=== PATIENT | male | born 1940 | race Caucasian/White ===

== ENCOUNTER 2020-04-19 18:25 | Emergency (ER) | payer MEDICARE, OTHER ==
[~2020-04-19] VITALS: Ht 182.9 cm; Wt 79.8 kg
[2020-04-19 19:30] LABS: BASOPHILS ABSOLUTE AUTO 0.05 K/mm3 (0.00-0.23); BASOPHILS PERCENT AUTO 0 % (0-2); EOSINOPHILS ABSOLUTE AUTO 0.01 K/mm3 (0.00-0.68); EOSINOPHILS PERCENT AUTO 0 % (0-6); Hematocrit 43.3 % (37.0-53.0); Hemoglobin 14.8 g/dL (13.5-17.5); IMMATURE GRAN ABSOLUTE AUTO 0.08 K/mm3 (0.00-0.10); IMMATURE GRAN PERCENT AUTO 1 % (0-1); LYMPHOCYTES ABSOLUTE AUTO 0.88 K/mm3 (0.84-5.20); LYMPHOCYTES PERCENT AUTO 7 % (21-46); MONOCYTES ABSOLUTE AUTO 0.67 K/mm3 (0.16-1.47); MONOCYTES PERCENT AUTO 6 % (4-13); Mean Corpuscular HGB 30.5 pg (26.0-34.0); Mean Corpuscular HGB Conc 34.2 g/dL (31.5-36.5); Mean Corpuscular Volume 89 fL (80-100); Mean Platelet Volume 9.2 fL (9.1-12.4); NEUTROPHILS PERCENT AUTO 86 % (41-73); Platelet Count 167 K/mm3 (150-400); RDW Coefficient Variation 13.7 % (11.7-14.2); RDW Standard Deviation 44.5 fL (35.1-46.3); Red Blood Cell Count 4.85 M/mm3 (4.30-5.90); White Blood Cell Count 12.29 K/mm3 (4.00-11.30)
[2020-04-19 19:59] LABS: Alanine Aminotransfer (ALT/SGP 25 U/L (12-78); Albumin, Blood 4.1 g/dL (3.4-5.0); Albumin/Globulin Ratio 1.1 (0.8-1.8); Alk Phos 122 U/L (50-136); Anion Gap 10 mmol/L (6-16); Aspartate Aminotrans (AST/SGOT 25 U/L (12-37); Bilirubin, Total 0.8 mg/dL (0.1-1.0); Blood Urea Nitrogen 21 mg/dL (8-24); Bun/Creatinine Ratio 19.4 (12.0-20.0); CO2, Blood 25 mmol/L (21-32); Calcium, Blood 8.6 mg/dL (8.5-10.1); Chloride, Blood 99 mmol/L (98-108); Creatinine, Blood 1.08 mg/dL (0.60-1.20); Globulin, Blood 3.8 g/dL (2.2-4.0); Glomerular Filtration Rate >60 (60-); Glucose, Blood 203 mg/dL (70-99); Potassium, Blood 4.3 mmol/L (3.5-5.5); Sodium, Blood 134 mmol/L (136-145); Total Protein, Blood 7.9 g/dL (6.4-8.2); Troponin I <0.015 ng/mL (0.000-0.040)
[2020-04-19] MEDS ORDERED: Prinivil5 MG PO (20:20)
== END 2020-04-19 20:28 | disposition home or self-care (01) ==
LOC: ER 18:25
PROVIDERS: Physician Assistant
DX: I10 Essential (primary) hypertension (principal)
CPT/HCPCS: 36415; 71046; 80053; 84484; 85025; 93005; 93010; 99283-25

== ENCOUNTER 2021-09-18 11:33 | Emergency (ER) | payer MEDICARE, OTHER ==
[~2021-09-18] VITALS: Ht 182.9 cm; Wt 72.6 kg
[~2021-09-18 11:33] MED LIST: AMOCLA875 PO; ATOR20 PO; CIPRODEX OTIC7.5 M1 BOTHEARS; CLOBET30L; Deltasone 10 mg10 MG PO; FINA5 PO; Flonase 0.05% N16 GM; IPRATROPIUM BRO30 ML; LEVSOD75 PO; LOSA50 PO; Nexium40 MG PO; PRED20 PO; Prinivil5 MG PO; SODIUM FLUORID100 M2 DT; TAMS.4ER PO; UREA226.8 GM; XYZAL5 MG PO
[2021-09-18] MEDS ORDERED: Prinivil10 MG PO (12:02)
[2021-09-18] MEDS ORDERED: Norco 5-325 Ta1 EACH PO (14:01)
== END 2021-09-18 14:10 | disposition home or self-care (01) ==
LOC: ER 11:33
DX: I73.9 Peripheral vascular disease, unspecified (principal); I10 Essential (primary) hypertension; Z85.21 Personal history of malignant neoplasm of larynx; Z79.52 Long term (current) use of systemic steroids; Z79.899 Other long term (current) drug therapy
CPT/HCPCS: 93971; 99283-25

== ENCOUNTER 2021-09-21 09:43 | Inpatient (IN) | payer MEDICARE, OTHER ==
[~2021-09-21] VITALS: Ht 182.9 cm; Wt 65.5 kg
[~2021-09-21 09:43] MED LIST changes: +Norco 5-325 Ta1 EACH PO; +Prinivil10 MG PO
[2021-09-21 10:22] LABS: BASOPHILS ABSOLUTE AUTO 0.07 K/mm3 (0.00-0.23); BASOPHILS PERCENT AUTO 1 % (0-2); EOSINOPHILS ABSOLUTE AUTO 0.07 K/mm3 (0.00-0.68); EOSINOPHILS PERCENT AUTO 1 % (0-6); Hematocrit 39.6 % (37.0-53.0); Hemoglobin 12.8 g/dL (13.5-17.5); IMMATURE GRAN ABSOLUTE AUTO 0.07 K/mm3 (0.00-0.10); IMMATURE GRAN PERCENT AUTO 1 % (0-1); LYMPHOCYTES ABSOLUTE AUTO 1.21 K/mm3 (0.84-5.20); LYMPHOCYTES PERCENT AUTO 12 % (21-46); MONOCYTES ABSOLUTE AUTO 0.67 K/mm3 (0.16-1.47); MONOCYTES PERCENT AUTO 6 % (4-13); Mean Corpuscular HGB Conc 32.3 g/dL (31.5-36.5); Mean Corpuscular Volume 90 fL (80-100); Mean Platelet Volume 9.3 fL (9.1-12.4); NEUTROPHILS ABSOLUTE AUTO 8.46 K/mm3 (1.96-9.15); NEUTROPHILS PERCENT AUTO 80 % (41-73); Platelet Count 285 K/mm3 (150-400); RDW Coefficient Variation 14.9 % (11.7-14.2); RDW Standard Deviation 49.2 fL (35.1-46.3); Red Blood Cell Count 4.41 M/mm3 (4.30-5.90); White Blood Cell Count 10.55 K/mm3 (4.00-11.30)
[2021-09-21 11:49] LABS: Influenza A, PCR NEGATIVE (NEGATIVE); Influenza B, PCR NEGATIVE (NEGATIVE); Resp Syncytial Virus, PCR NEGATIVE (NEGATIVE); SARS-Cov-2 (COVID-19) PCR, MMC NEGATIVE (NEGATIVE)
[2021-09-21 13:39] LABS: Alanine Aminotransfer (ALT/SGP 24 U/L (12-78); Albumin, Blood 3.4 g/dL (3.4-5.0); Albumin/Globulin Ratio 0.9 (0.8-1.8); Alk Phos 87 U/L (50-136); Anion Gap 9 mmol/L (6-16); Aspartate Aminotrans (AST/SGOT 17 U/L (12-37); Bilirubin, Total 0.7 mg/dL (0.1-1.0); Blood Urea Nitrogen 11 mg/dL (8-24); Bun/Creatinine Ratio 10.9 (12.0-20.0); CO2, Blood 28 mmol/L (21-32); Calcium, Blood 8.8 mg/dL (8.5-10.1); Chloride, Blood 100 mmol/L (98-108); Creatinine, Blood 1.01 mg/dL (0.60-1.20); Globulin, Blood 3.8 g/dL (2.2-4.0); Glomerular Filtration Rate >60 (60-); Glucose, Blood 110 mg/dL (70-99); Potassium, Blood 4.6 mmol/L (3.5-5.5); Sodium, Blood 137 mmol/L (136-145); Total Protein, Blood 7.2 g/dL (6.4-8.2)
--- NOTE | 2021-09-21 14:54 | NUR ---
ASSUMED CARE: PT ARRIVED FROM ED WITH RIGHT LOWER LIMB ISCHEMIA. LEG IS BLUE/PURPLE TINGED, COOL TO THE TOUCH, NO DOPPLER FOUND WHEN CHECKING FOR PEDAL AND TIBIAL PULSES. PEDAL PULSE TO LEFT LEG FOUND WITH FAINT SOUNDS. PT C/O PAIN TO RIGHT LEG WITH ANY KIND OF STIMULATION. HYPERTENSION NOTED. CALL TO [facility] OR WORK TO MAKE HIM AWARE. ORDER RECIEVED FOR PAIN MEDS. [facility] DID NOT WISH TO ADDRESS HYPERTENSION AT THIS TIME BUT STATES TO MANAGE PAIN AND WHEN INTERVENTION IS COMPLETED WILL GO FROM THERE WITH BP. WILL MEDICATE WHEN ABLE
[2021-09-21 15:21] LABS: Anti-Xa UFH, PHA Monitoring <0.10 IU/mL; Prothrombin Time Results 10.5 Sec (9.7-11.5)
--- NOTE | 2021-09-21 16:00 | NUR ---
PT TAKEN TO [facility] VIA BED BY LINE PILOT STAFF
[2021-09-21 17:32] LABS: U Amphetamine Screen Not Detected; U Barbituate Screen Not Detected; U Benzodiazapine Screen Not Detected; U Buprenorphine Screen Not Detected; U Cannabinoids Screen Not Detected; U Cocaine Screen Not Detected; U Methadone Screen Not Detected; U Methamphetamine Screen Not Detected; U Opiates Screen DETECTED; U Oxycodone Screen DETECTED; U Phencyclidine Screen Not Detected; U Propoxyphene Screen Not Detected
--- NOTE | 2021-09-21 19:14 | NUR ---
PT RETURNED FROM [facility] WITH SHEATH TO LEFT GROIN. HEPARIN GTT AT 10ML/HR PER DR AL INSTRUCTIONS THROUGH SHEATH SIDE ARM. CALL TO PHARMACY FOR TPA GTT. DR AL CAME TO SEE PT AND INSTRUCTS FOR GARDNER CATH TO BE PLACED PRIOR TO TPA GTT STARTING AND IS AWARE THAT THERE IS MINIMAL PULSE TO LEFT FOOT AND NONE TO RIGHT LEG AT THIS TIME. DR AL STATES HE DOES WANT 25ML/HR NS TO RUN BEHIND TPA GTT DUE TO BLOCKAGE BEING MAJORITY OF PT'S LIMB. CENTRAL SUPPLY ASSISTANT AND NIGHT RN AWARE. NIGHT RN ATTEMPTING GARDNER CATH AT THIS TIME.
[2021-09-21 19:27] LABS: Hematocrit 36.9 % (37.0-53.0); Mean Platelet Volume 9.9 fL (9.1-12.4); Platelet Count 262 K/mm3 (150-400)
[2021-09-21 20:41] LABS: Source, Urine Clean Catch
[2021-09-21 21:03] LABS: Bilirubin, Urine Neg (Neg); Blood, Urine 5+ (Neg); Glucose Qualitative, Urine Neg (Neg); Ketones, Urine 1+ (Neg); Leukocyte Esterase, Urine Neg (Neg); Nitrite, Urine Neg (Neg); Protein, Urine 2+ (Neg); Specific Gravity, Urine 1.005 (1.003-1.022); Urobilinogen, Urine NORM (Normal)
[2021-09-21 21:10] LABS: Appearance, Urine Hazy (Clear); Color, Urine Pale Yellow (P-Yellow)
[2021-09-21 21:13] LABS: Bacteria Few /hpf; Red Blood Cells, Urine 25-50 /hpf (0-2); Squamous Epithelial Cells Not Seen /hpf (Few); White Blood Cells, Urine Not Seen /hpf (0-5)
--- NOTE | 2021-09-21 22:26 | NUR ---
SHIFT ASSESSMENT ASSUMED CARE OF PT @ 1900. PT ALERT AND ORIENTED, LAYING SUPINE IN BED. R LEG WITH BLANKET ROLL TUCKED TO REMIND PT TO KEEP LEG STRAIGHT AND STILL. HEPARIN GTT INFUSING @ 10ML/HR, ALTEPLASE @ 1MG/HR, AND NICARDIPINE @ 3MG/HR. GARDNER CATHETER DRAINING EMILY URINE. PTS PAIN SLOWLY BECAME WORSE AT THE BEGINNING OF SHIFT, PT SHIFTING IN BED, ATTEMPTING TO GET UP. PT MEDICATED c PRN PO PAIN MEDS WITH NO RELIEF. HOSPITALIST NOTIFIED, NEW ORDERS FOR IV PAIN MEDS GIVEN. MEDICATED PT c 50MCG'S FENTANYL WITH MINIMAL RELIEF, PT CONTINUED TO THRASH IN BED. DURING THIS TIME PT WENT IN TO A-FIB IN THE 140-150'S. THIS NURSE EDUCATED PT OF THE HIGH BLEEDING RISK AND THE IMPORTANCE OF STAYING SUPINE. PT UNDERSTANDING BUT STATES HE CANNOT TAKE THIS PAIN. HOSPITATLIST NOTIFIED, NEW ORDERS GIVEN FOR PAIN CONTROL AND HR, CURRENT CRAFT MANAGER APPEARS TO HAVE PAIN MANAGEABLE. HR NOW IN THE 80'S. PT CONTINUES TO MOVE IN BED, THIS NURSE CONTINUOUSLY REMINDING PT OF THE NEED TO REMAIN SUPINE. PT NON COMPLIANT WITH REMAINING STILL. WILL CONTINUE TO MONITOR CLOSELY.
[2021-09-22 04:11] LABS: BASOPHILS ABSOLUTE AUTO 0.09 K/mm3 (0.00-0.23); BASOPHILS PERCENT AUTO 1 % (0-2); EOSINOPHILS ABSOLUTE AUTO 0.01 K/mm3 (0.00-0.68); EOSINOPHILS PERCENT AUTO 0 % (0-6); Hematocrit 34.2 % (37.0-53.0); IMMATURE GRAN ABSOLUTE AUTO 0.09 K/mm3 (0.00-0.10); IMMATURE GRAN PERCENT AUTO 1 % (0-1); LYMPHOCYTES ABSOLUTE AUTO 0.59 K/mm3 (0.84-5.20); LYMPHOCYTES PERCENT AUTO 4 % (21-46); MONOCYTES ABSOLUTE AUTO 0.73 K/mm3 (0.16-1.47); MONOCYTES PERCENT AUTO 5 % (4-13); Mean Corpuscular HGB 29.3 pg (26.0-34.0); Mean Corpuscular HGB Conc 32.2 g/dL (31.5-36.5); Mean Corpuscular Volume 91 fL (80-100); Mean Platelet Volume 8.7 fL (9.1-12.4); NEUTROPHILS ABSOLUTE AUTO 13.14 K/mm3 (1.96-9.15); NEUTROPHILS PERCENT AUTO 90 % (41-73); Platelet Count 158 K/mm3 (150-400); RDW Coefficient Variation 15.3 % (11.7-14.2); RDW Standard Deviation 50.3 fL (35.1-46.3); Red Blood Cell Count 3.76 M/mm3 (4.30-5.90); White Blood Cell Count 14.65 K/mm3 (4.00-11.30)
[2021-09-22 04:35] LABS: Alanine Aminotransfer (ALT/SGP 19 U/L (12-78); Albumin, Blood 2.6 g/dL (3.4-5.0); Albumin/Globulin Ratio 0.7 (0.8-1.8); Alk Phos 66 U/L (50-136); Anion Gap 9 mmol/L (6-16); Aspartate Aminotrans (AST/SGOT 16 U/L (12-37); Bilirubin, Total 0.7 mg/dL (0.1-1.0); Blood Urea Nitrogen 11 mg/dL (8-24); Bun/Creatinine Ratio 11.7 (12.0-20.0); CO2, Blood 26 mmol/L (21-32); Calcium, Blood 8.1 mg/dL (8.5-10.1); Chloride, Blood 103 mmol/L (98-108); Creatinine, Blood 0.94 mg/dL (0.60-1.20); Globulin, Blood 3.5 g/dL (2.2-4.0); Glomerular Filtration Rate >60 (60-); Glucose, Blood 134 mg/dL (70-99); Magnesium, Blood 2.4 mg/dL (1.6-2.4); Potassium, Blood 3.6 mmol/L (3.5-5.5); Sodium, Blood 138 mmol/L (136-145); Total Protein, Blood 6.1 g/dL (6.4-8.2)
--- NOTE | 2021-09-22 05:58 | NUR ---
SHIFT SUMMARY PT FINALLY ABLE TO GET SOME REST AFTER BEING MEDICATED c 2MG DILAUDID. TOUR BUS DRIVER/GUIDE CHANGED FROM FENTANYL TO DILAUDID, PT HAS NOT USED DILAUDID TOUR BUS DRIVER/GUIDE. PAIN IS TOLERABLE AT THIS TIME, PT MORE COMPLIANT WITH REMAINING SUPINE. SMALL AMNT OF SS FLUID FROM LF ACCESS SITE, NO SWELLING/ HEMATOMA NOTED. HEPARIN AND TPA CONTINUE AT PRESCRIBED RATE. NICARDIPINE GTT IS OFF, SBP IN THE 130'S. UNABLE TO OBTAIN DOPPLER PULSE ON R EXTREMITY. R FOOT REMAINS COOL TO TOUCH. GARDNER CATH PATENT DRAINING YELLOW URINE. PT NPO SINCE MIDNIGHT. PT SLIGHTLY CONFUSED THIS AM. THIS NURSE SPOKE WITH PTS FRIEND/ CAREGIVER/ UNOFFICIAL ROSALIA VOGT. SIN STATED PT DOES HAVE MOMENTS OF CONFUSION, POSSIBLY OWNERS. PER SIN, PTS DAUGHTER "ROBERT" IS FLYING IN SAT-09/23.
--- NOTE | 2021-09-22 07:30 | NUR ---
DR AL ROUNDING: DR AL IN FOR PT EVAL. RLE PULSES STILL ABSENT, EVEN W/ DOPPLER. HOWEVER SENSATION HAS MUCH IMPROVED OVERNIGHT, PER SERVANDO EVAL. RLE APPEARS MOTTLED, PALE. WARM TO THE TOUCH BUT COOLER THAN THE RLE. PT DEMOSTRATES EXTENSION & FLEXATION, & IS ABLE TO PUSH/PULL W/ MINIMAL PAIN. D/T EXTENT OF THE OCCLUSION, SERVANDO WANTS THE HEPARIN & tPA TO INFUSE FOR THE REST OF THE MORNING & HE WILL TAKE THE PT BACK TO THE HAM PUMPER AROUND LATE MORNING OR EARLY AFTERNOON.
--- NOTE | 2021-09-22 11:37 | NUR ---
UPDATE: PT TO ADMISSIONS ADVISOR. ADMISSIONS ADVISOR TRANSPORT ARRIVES. DILAUDID TRASHMAN PLACED ON SB, tPA & HEPARIN gtt CONTINUES W/ PT TO ADMISSIONS ADVISOR. DAUGHTER, ROBERT UPDATED BY THIS RN.
--- NOTE | 2021-09-22 16:15 | NUR ---
UPDATE: PT RETURNS FROM JUNIOR ACCOUNTANT BOOKKEEPER PT RETURNS FROM JUNIOR ACCOUNTANT BOOKKEEPER. SHEATHE PULLED, ANGIOSEAL IN PLACE. OPSITE DRESSING TO L GROIN ACCESS SITE. SM AMNT OF BLEEDING INTO THE DRESSING, SURROUNDING AREA IS SOFT, NONTENDER, NO OBVIOUS HEMATOMA OR SWELLING. RLE IS PINK W/ LESS MOTTLING. R DP PULSE ABSENT, PT PULSE FAINT W/ DOPPLER. PER SERVANDO, THIS IS AN EXPECTED FINDING. DISTAL CMS INTACT, PAIN W/ PASSIVE STRETCH & PALPATION TO POSTERIOR RLE. GARDNER DRAINING DARK MAROON CONTENTS. ORDERS TO DC GARDNER ONCE PT IS NO LONGER ON MOVEMENT PRECAUTIONS FOR BLEEDING.
--- NOTE | 2021-09-22 17:38 | NUR ---
UPDATE: PT AGITATED & FAMILY UPDATE. DAUGHTER, ROBERT, UPDATED ON PT STATUS AFTER PERFORATOR OPERATOR OIL WELL. PT OBSERVED TO BE INCREASINGLY AGITATED, UNABLE TO LAY FLAT & OFTEN SITTING UP DESPITE REPEATED VERBAL REMINDERS. ADDITIONALLY, SBP NOW 160s-190s. HOSPITALIST, DR Harris, CALLED & UPDATED. SHE WILL PLACE ORDERS FOR PAIN CONTROL & BP CONTROL.
--- NOTE | 2021-09-22 18:32 | NUR ---
SHIFT SUMMARY: PT APPEARS TO BE RESTING WELL AFTER RECEIVING PAIN MEDS, NOW ABLE TO REST SUPINE IN BED. BP IMPROVED AFTER IV HYDRALAZINE. RLE PALE, WARM, W/ SOME MOTTLING. DISTAL CSM INTACT. PT ABLE TO DEMONSTRATE FLEXATION & EXTENSION, & PUSH/PULL W/ R FOOT. HE DOES REPORT SOME POSTERIOR RLE PAIN W/ MOVEMENT. GIACOMO PEDAL PULSES MARKED, R DP PULSE ABSENT, R PT PULSE THREADY W/ DOPPLER. HEPARIN @ 18u/kg/hr. GARDNER OUTPUT CONTINUES TO BE DARK RED, NO NOTABLE CLOTS. WILL CONTINUE TO MONITOR & REPORT OFF TO ONCOMING RN.
--- NOTE | 2021-09-22 21:12 | NUR ---
SHIFT ASSESSMENT BEDSIDE REPORT RECEIVED. DR AL AT BEDSIDE DURING REPORT. PT ALERT AND ORIENTED, LAYING SUPINE IN BED C/O INCREASING PAIN IN THE RIGHT LEG. UNABLE TO OBTAIN DOPPLER PULSES IN R FOOT. SENSATION AND MOVEMENT REMAIN IN TACT TO RLE. COLOR IN RLE IMPROVING IN COMPARISON TO PREVIOUS NIGHT. L FEMORAL ACCESS SITE WITH SMALL HEMATOMA, ASSESSED SWELLING WITH PRIOR NURSE AND DR. AL, NO NEW SWELLING OR BLEEDING NOTED. HEPARIN GTT INFUSING @ 18U/KG/HR. GARDNER CATH PATENT, DRAINING RED URINE, PROVIDER AWARE. WILL CONTINUE TO MONITOR CLOSELY.
[2021-09-23 05:39] LABS: Hematocrit 26.6 % (37.0-53.0); Hemoglobin 8.5 g/dL (13.5-17.5); Mean Platelet Volume 9.3 fL (9.1-12.4); Platelet Count 166 K/mm3 (150-400)
[2021-09-23 06:21] LABS: CHOL/HDL RATIO 2.6; Cholesterol 127 mg/dL (50-200); HDL Cholesterol 49 mg/dL (>39); LDL/HDL RATIO 1.2; Low Density Lipoprotein Chol 58 mg/dL (0-110); Triglycerides 98 mg/dL (30-160); Very Low Density Lipoprot Chol 19 mg/dL (6-32)
--- NOTE | 2021-09-23 06:33 | NUR ---
SHIFT SUMMARY PT REMAINS ALERT AND ORIENTED. EARLY IN THE NIGHT PT PRESENTED WITH MILD CONFUSION THAT SEEMS TO HAVE CLEARED THIS AM. HEPARIN GTT CONTINUES @ 18U/KG/HR. PT IN A-FIB AROUND MIDNIGHT, HOSPITALIST NOTIFIED, AMIODARONE GTT STARTED AND PT CONVERTED TO NSR. NOTIFIED HOSPITALIST OF CHANGE IN RYTHM, ADVISED TO DC AMIODARONE. AROUND 0500 PT WENT BACK INTO A-FIB, HOSPITALIST NOTIFIED. NEW ORDERS FOR ONE TIME IV METOPROLOL AND BID PO METOPROLOL. HR CURRENTLY IN THE 120-130'S, BP STABLE. AM HEMOGLOBIN DROPPED, REPEAT HGB ORDERED FOR 0900. NO SIGNS OF BLEEDING OTHER THAN PREVIOUSLY NOTED REDDENED URINE. LEFT FEMORAL ACCESS SITE UNCHANGED. NO IMPROVEMENTS TO RLE, COLOR REMAINS IMPROVED FROM PREVIOUS DAY BUT PULSES ARE ABSENT. PT CONTINUES TO C/O MODERATE PAIN TO RLE. NO OTHER ACUTE CHANGES, REPORT TO ONCOMING NURSE.
--- NOTE | 2021-09-23 08:00 | NUR ---
UPDATE: CONVERSION WHILE @ REST IN BED, PT CONVERTS FROM AFIB c RVR c RATE IN THE 160s TO A SINUS RHYTHM, HR 80s. BP ALSO IMPROVED. PT CONTINUES TO DENY ANY CP OR SOB & IS ABLE TO DEMONSTRATE HIS NEEDS. WILL UPDATE PROVIDER SHORTLY. STRIP PRINTED & PLACED IN CHART.
[2021-09-23 09:10] LABS: Hematocrit 25.9 % (37.0-53.0); Hemoglobin 8.1 g/dL (13.5-17.5)
--- NOTE | 2021-09-23 09:45 | NUR ---
DR ANDUJAR ROUNDING. DISCUSSED PREVIOUSLY LOW H&H & NEW H&H OF 8.1, 24.9. PT DOES NOT ACCEPT BLOOD PRODUCTS. VERBAL ORDERS GIVEN FOR IRON DEFICIENCY PANEL. DR ANDUJAR ALSO DISCUSSES W/ PT THE IMPORTANCE OF F/U W/ OUTPATIENT & THE POSSIBILITY OF AMPUTATION. PT DOES NOT SEEM RECEPTIVE OR OPEN TO DISCUSSING THE TOPIC. PT ASSISTED UP TO RECLINER W/ STANDBY ASSIST, BLE ELEVATED. PT REPORTS MARKEDLY IMPROVED PAIN RELIEF & IS NOW ABLE TO REST W/ EYES CLOSED. DOOR/CURTAINS LEFT OPEN, CALL LIGHT W/ IN REACH.
[2021-09-23 10:37] LABS: Percent Saturation 27.1 % (20.0-50.0)
[2021-09-23 17:13] LABS: Hematocrit 23.3 % (37.0-53.0); Hemoglobin 7.3 g/dL (13.5-17.5)
--- NOTE | 2021-09-23 20:55 | NUR ---
SHIFT ASSESSMENT PT ALERT AND ORIENTED, SITTING UPRIGHT IN BED WATCHING TV. FOLLOWING COMMANDS. DENIES CP/ SOB. GAME ROOM ATTENDANT CURRENTLY SHOWING NSR. BP STABLE. R FOOT REMAINS PULSELESS, WEAK DORSIFLEXION, COLOR REMAINS IMPROVED IN COMPARISON TO PTS ARRIVAL TO HOSPITAL. HEPARIN GTT CONTINUES @ 18U/KG/HR. GARDNER CATH CONTINUES TO DRAIN LIGHT PINK URINE. WILL CONTINUE TO MONITOR.
[2021-09-23 23:18] LABS: Hematocrit 21.9 % (37.0-53.0); Hemoglobin 6.9 g/dL (13.5-17.5)
[2021-09-24 05:17] LABS: Hematocrit 21.9 % (37.0-53.0); Mean Platelet Volume 9.8 fL (9.1-12.4); Platelet Count 184 K/mm3 (150-400)
--- NOTE | 2021-09-24 05:54 | NUR ---
SHIFT SUMMARY PT ALERT AND ORIENTED, MENTAL STATUS IS MUCH BETTER IN COMPARISON TO PREVIOUS NIGHTS. NO BOUTS OF CONFUSION OR AGITATION NOTED. PT MORE ACTIVE, ABLE TO SIT ON SIDE OF THE BED, SHIFTING R LEG TO FIND POSITION OF MOST COMFORT. NO CHANGES TO RLE, REMAINS PAINFUL. PT HAD APPROXIMATELY A 3 MINUTE RUN OF A-FIB IN THE 160'S, SELF CONVERTED. DENIED CP OR SOB DURING THAT TIME. NO OTHER ACUTE CHANGES.
--- NOTE | 2021-09-24 09:30 | NUR ---
UPDATE: PT AGITATION & CONFUSION. PT FOUND TO BE SITTING UP IN BED W/ VS EQUIP OFF & IV REMOVED. SIGNIFICANT AMNT OF BLOOD NOTED ON THE PT, BLANKETS, & ON THE FLOOR. PT IS AGITATED, CONFUSED. REFUSING TO HAVE SHEETS CHANGED. AFTER MUCH VERBAL REDIRECTION, PT IS ABLE TO BE CLEANED & PUT BACK TO BED, HEPARIN gtt RESTARTED. PT REPORTS HE WAS UNABLE TO HOLD STILL D/T RLE PAIN. SAIGAL @ BEDSIDE FOR AM EVAL. PRN PAIN MEDS ORDERED FOR MORE FREQUENTLY. PT REFUSES ADDITOINAL PAIN MEDS STATING "THAT SHIT DOESN'T WORK" "I'D RATHER ", ATTEMPTED TO CONSOLE PT, PT THREATENED TO "START THROWING SHIT". WILL ATTEMPT AGAIN SHORLTY AFTER SPEAKING W/ FAMILY
--- NOTE | 2021-09-24 09:45 | NUR ---
UPDATE: BED ALARM BED ALARM NOT FUNCTIONAL. BED RAILS RAISED, DOOR & CURTAINS OPEN, STAFF MADE AWARE OF PT FALL RISK & CONFUSION.
--- NOTE | 2021-09-24 10:15 | NUR ---
UPDATE: FAMILY UPDATED PT SPOKE W/ SIN FOR SEVERAL MINS & APPEARS LESS AGITATED BUT CONTINUES TO REFUSE CARE. AFTER SEVERAL MINS OF THIS RN & THE PT SPEAKING W/ SIN, PT WAS ABLE CALM DOWN & ACCEPT MORE PAIN MEDS. SIN, FRIEND & CAREGIVER, STS SHE DOES NOT WANT HIM IN THE HOSPITAL & "I'LL COME GET HIM AMA, HE NEEDS TO BE HOME W/ PAIN CONTROL". FRIEND EDUCATED THOROUGHLY ON THE PLAN TO TRANSITION PT TO PO ANTICOAGULANTS & BE DC'D HOME. FRIEND IS INSISTENT THAT PT BE DC'D HOME W/ PAIN MEDS. WILL DISCUSS W/ HOSPITALIST SHORTLY.
--- NOTE | 2021-09-24 11:41 | NUR ---
UPDATE: RHYTHM CHANGE. OVER THE PAST 2 HRS, PT HAS HAD SHORT INTERMITTENT RUNS OF SVT, ALL SELF-RESOLVING. WHILE @ REST, PT WENT INTO SVT, SUSTAINING IN THE 160s. VAGAL MANEUVERS PERFOMED W/OUT RESOLUTION. PETAR CALLED & UPDATED, DISCUSSED CONCERNS FOR PT'S POOR PAIN CONTROL. ORDERS GIVEN FOR 2mg IV DILAUDID NOW. WILL REEVALUATE SHORTLY.
--- NOTE | 2021-09-24 11:53 | NUR ---
UPDATE: PT HAS CONVERTED INTO A SINUS RHYTHM BEFORE GIVEN PAIN MEDS. HE REPORTS CONTINUED PAIN, MEDICATED W/ 2mg IV DILAUDID & PT IS NOW RESTING SOUNDLY. PT APPEARS LESS AGITATED & NO LONGER USING AGGRESSIVE LANGUAGE.
[2021-09-24 12:43] LABS: Hematocrit 20.4 % (37.0-53.0); Hemoglobin 6.4 g/dL (13.5-17.5)
--- NOTE | 2021-09-24 16:49 | NUR ---
UPDATE: SVT & SAIGAL ROUNDING. WHILE @ REST IN BED, PT AGAIN CONVERTED BACK INTO SVT. PT APPEARS ASYMPTOMATIC, SPEAKING IN FULL SENTENCES, RR EVEN & UNLABORED, DENIES CP. PETAR @ BEDSIDE. MULTIPLE VAGAL MANEUVERS UNSUCCESSFULL. PT GIVEN 5mg IVP LOPRESSOR, RATE DEC FROM 160s-130s. PETAR CONSULTS W/ AL & HEPARIN IS TO CONTINUE @ THE SAME RATE. NO AMIO @ THIS TIME. PLAN FOR METOPROLOL gtt & IF SVT IS UNRESOLVED, PLAN FOR DIGOXIN OR ESMOLOL gtt. WILL F/U W/ PETAR W/ ANY CHANGES. PETAR DISCUSSED PT'S DECREASING H&H & RECEIVING BLOOD, PT CONTINUES TO REFUSE BLOOD PRODUCTS UNDER ANY CONDITION. IN DISCUSSING AMPUTATION OPTIONS, PT STS HE IS UNSURE BUT IF IT "WERE LIFE OR ,JUST DO IT BUT TALK TO MY DAUGHTER" MULTIPLE CALLS PUT OUT TO NEXT OF KIN, ROBERT, NO CALL BACK.
--- NOTE | 2021-09-24 18:06 | NUR ---
UPDATE: HEPARIN UPDATE DISCUSSED HEPARIN ORDER W/ SAIGAL. HEPARIN DOSE RESTARTED @ 18u/kg/hr, PHARMACY TO MANAGE DOSING THEREAFTER W/ LAB DRAWS. D/T PT's DEC BLOOD VALUES, PETAR WANTS PEDIATRIC TUBES USED FOR FURTHER BLOOD DRAWS. LAB CALLED & UPDATED & SIGN POSTED OUTSIDE PT ROOM. WILL PASS ON TO NIGHTSHIFT RN.
--- NOTE | 2021-09-24 18:26 | NUR ---
SHIFT SUMMARY: PT CONTINUES TO DO VERY WELL NOW THAT PAIN IS MANAGED, MUCH MORE APPROPRIATE, CALM, & COOPERATIVE W/ CARE. MONITOR INDICATES AFIB W/ RVR, RATE 120-140s. PLAN FOR DIGOXIN SHORTLY, PER SAIGAL DIGOXIN WILL TAKE SEVERAL HOURS TO TAKE EFFECT, HENCE THE LOPRESSOR gtt @ 0.5mcg/kg/min. BP TRENDING DOWN W/ MAPs 65-75. PT IS NOW ICU STATUS, ORDERS PLACED. SEE PREVIOUS NOTATION FOR PT PROGRESSION.
--- NOTE | 2021-09-24 19:36 | NUR ---
CALL OUT TO BOTH CAREGIVER, SIN, & DAUGHTER, ROBERT, NO RETURN CALL OF YET. LEFT MESSAGES FOR BOTH.
--- NOTE | 2021-09-24 22:51 | NUR ---
SHIFT ASSESSMENT ASSUMED CARE OF PT @ 1900. PT ALERT AND ORIENTED TO PERSON, PLACE, AND YEAR. FOLLOWING COMMANDS BUT QUITE AGITATED. C/O MODERATE PAIN TO RLE, NO PULSES FOUND. HEPARIN GTT INFUSING @ PRESCRIBED RATE. INITIALLY PT IN A-FIB IN THE 130-140'S, TITRATING LOPRESSOR, CURRENTLY @ 2MCG/KG/MIN. PT CONVERTED TO SR @ 2140 c HR IN 50-70'S. DISCUSSED c CHARGE NURSE, LOPRESSOR CURRENTLY ON SB. BP STABLE. WILL CONTINUE TO MONITOR.
--- NOTE | 2021-09-25 01:16 | NUR ---
UPDATE PT CONTINUES TO BE AGITATED, THREATENING STAFF, PULLING AT LINES AND CORDS. TRYING TO LEAVE BUT CANNOT PUT MUCH PRESSURE ON R LEG. PT THINKS HE IS AT HOME AND WE ARE INTRUDERS. SECURITY NOTIFIED. HOSPITALIST CALLED, ORDERS FOR HALDOL. WILL CONTINUE TO MONITOR.
--- NOTE | 2021-09-25 02:13 | NUR ---
UPDATE HALDOL ADMINISTERED, PT REMAINS AGITATED. MULTIPLE NURSES AND SECURITY IN ROOM TO CAUTIOUSLY ASSIST PATIENT TO BED. BL SOFT WRIST RESTRAINTS ON TO PROTECT PATIENT AND IV LINES. WARM BLANKET APPLIED, PILLOWS UNDER ARMS AND HEAD, PT APPEARS TO BE IN POSITION OF COMFORT, ASLEEP WITHIN A FEW MINUTES WITH STIMULUS REDUCTION. WILL REASSESS NEED FOR RESTRAINTS T/O SHIFT.
[2021-09-25 05:01] LABS: Hematocrit 19.1 % (37.0-53.0); Hemoglobin 6.1 g/dL (13.5-17.5); Platelet Count 221 K/mm3 (150-400)
--- NOTE | 2021-09-25 06:04 | NUR ---
SHIFT SUMMARY PT REMAINS AGITATED AND CONFUSED. STIMULATION KEPT TO A MINIMUM BUT ANY MOVEMENT OF PT RESULTS IN PT CURSING AND PULLING AWAY. BL SOFT WRIST RESTRAINTS REMAIN ON. HEPARIN GTT NOW @ 20. NSR ON THE DIE TRIMMER. NO CHANGES TO RLE. VSS. WILL CONTINUE TO MONITOR.
--- NOTE | 2021-09-25 09:30 | NUR ---
ASSUMING PT CARE: PT RESTING IN BED, EYES OPEN. FOLLOWING COMMANDS. ANSWERS SOME QUESTIONS APPROPRIATELY BUT @ TIMES BELIEVES HE IS AT HOME & RESPONDS TO UNSEEN STIMULI. PT REFUSES AM MEDS, REFUSES BED BATH. PT BELIVES THE STAFF IS "KILLING ME WITH YOUR SHIT" WHEN ASKED IF HE WANTS BREAKFAST. HOSPITALIST @ BEDSIDE FOR MORNING ROUNDS. PLAN TO DISCUSS POSSIBLE DC W/ HOSPICE W/ FAMILY TODAY. PT'S CAREGIVER UPDATED VIA TELEPHONE, CALL OUT TO DAUGHTER, NO RETURN CALL.
--- NOTE | 2021-09-25 12:42 | NUR ---
Pt here in ICU with critical lower extremity ischemia and critically low H and H. He refuses any blood products however, due to his yazidi. He, his sister and caregiver have thouroughly discussed hospice, and this is the choice they have settled on. Dr. Harris is aware, as is the bedside RN Mally. Pt has an appt with [facility] tomorrow morning. Pt to discharge home at 10pm, family will provide transportation.
--- NOTE | 2021-09-25 13:00 | NUR ---
UPDATE: HOSPICE DISCUSSED COMFORT CARE & HOSPICE PLAN W/ HOSPITALIST DR Harris, VERBAL ORDERS GIVEN TO DC ALL ORDERS OTHER THAN COMFORT CARE MEDS. PHARMACY UPDATED ON HEPARIN DC. VERIFIED W/ PALLIATIVE CARE THAT PT IS NOW A DNR. DNR BAND PLACED ON L WRIST & OUTSIDE OF DOOR. PT IS RESTING SOUNDLY.
--- NOTE | 2021-09-25 14:01 | NUR ---
UPDATE: PT CONFUSION PT REFUSES PAIN MEDS. CONTINUES TO STATE HIS FRIEND SIN IS "BASICALLY A [employer] B[employer]ER" & "I WONT TAKE ANYTHING UNLESS SHE SIGNS OFF ON IT", PT REMINDED OF COMFORT CARE CONVERSATION W/FAMILY EARLIER & PT BEGINS TO BECOME AGITATED. STATING THE HOSPITAL IS "TRYING TO FORCE BLOOD TRANSFUSIONS ON ME" AND "WHATEVER YOU KEEP GIVING ME IS KILLING ME AND I DON'T WANT IT". AFTER SEVERAL MINS OF VERBAL CONSOLATION & REDIRECTION, PT APPEARS LESS AGITATED & ACCEPTS PAIN MEDS.
--- NOTE | 2021-09-25 14:54 | NUR ---
PT'S SON, RJ, UPDATED W/ THE PERMISSION OF NEXT OF KIN, ROBERT. SON UPDATED ON PT'S EPISODES OF CONFUSION & INTERVENTIONS USED TO KEEP PT SAFE. EXPLAINED PT'S REFUSAL OF IRON INF & EPOGEN, WELL ALL OTHER MEDS. SON EXHIBITS GOOD UNDERSTANDING OF THE PT's PROGRESSION & PLAN FOR DC HOME W/ HOSPICE CARE.
--- NOTE | 2021-09-25 16:00 | NUR ---
PT RESTRAINT ORDER IN PLACE, NO RESTRAINTS ON PT ON ARRIVAL TO ROOM, PT CALM AND COOPERATIVE, RESTRAINTS DISCONTINUED
--- NOTE | 2021-09-25 16:10 | NUR ---
ARRIVED FROM ICU VIA BED, TRANSFERRED TO BED IN ROOM 333. PT IS PLEASANT AND COOPERATIVE AT THIS TIME. WILL MONITOR.
--- NOTE | 2021-09-25 22:55 | NUR ---
2103 PT LYING IN BED, REPORTS PAIN IN R LEG, CRAMPING, UNABLE TO GIVE NUMBER, FACE LOOKS LIKE ABOUT A 7/10. PT REQUESTING PAIN MEDS FOR IT. WILL GIVE MEDS AND EVAL FOR EFFECT. GARDNER DARK YELLOW URINE. HYPERACTIVE BOWEL TONES. NO OTHER APPARENT SIGNS OF DISTRESS. CALL LIGHT IS IN REACH.
--- NOTE | 2021-09-25 22:58 | NUR ---
2132 BROUGHT PATIENT IN THE PAIN MEDICATIONS HE HAD ASKED FOR WELL SOME ATIVAN. PT REFUSED THE PAIN MEDICATIONS, STATED HE HAD NOT ASKED FOR THEM AND I WAS A "[place] NURSE WHO WAS TRYING TO POISEN HIM". THREW HIS WATER ACROSS THE ROOM. I CLEANED UP THE WATER AND CALLED SECURITY FOR STAND BY ASSIST AND ADMINISTERED HALDOL. WILL EVAL FOR EFFECT. NO OTHER APPARENT SIGNS OF DISTRESS AT THIS TIME. CALL LIGHT IS IN REACH. BED ALARM IS ON.
--- NOTE | 2021-09-25 23:01 | NUR ---
2229 PT ATTEMPTING TO GET OOB, SET OFF ALARM, TOLD PCAS HE WAS HAVING PAIN IN HIS R LEG. REFUSED PAIN MEDS FROM ME, ASKED PCAS TO GET HIM A HEATING PAD. WILL EVAL FOR EFFECT. NO OTHER APPARENT SIGNS OF DISTRESS. CALL LIGHT IS IN REACH. PT HAD ALSO BEEN PULLING ON HIS GARDNER. BED ALARM IS ON.
--- NOTE | 2021-09-25 23:08 | NUR ---
PT WILL NOT LET ME TAKE HIS IV OUT AT THIS TIME, WILL TAKE IT OUT SOON HE LETS ME.
--- NOTE | 2021-09-26 | NUR ---
PT LYING IN BED, EYES CLOSED, APPEARS TO BE RESTING. BREATHING IS EVEN, UNLABORED. NO APPARENT SIGNS OF DISTRESS. CALL LIGHT IS IN REACH. BED ALARM IS ON.
--- NOTE | 2021-09-26 01:29 | NUR ---
PT LYING IN BED, EYES CLOSED, APPEARS TO BE RESTING. BREATHING IS EVEN, UNLABORED. NO APPARENT SIGNS OF DISTRESS. CALL LIGHT IS IN REACH BED ALARM IS ON.
--- NOTE | 2021-09-26 03:07 | NUR ---
PT REQUESTED AND ACTUALLY TOOK PAIN MEDS, WILL EVAL FOR EFFECT. HE ALSO LET ME TAKE OUT THE LEAKING IV IN HIS R AC. PT TOLERATED WELL. NO OTHER APPARENT SIGNS OF DISTRESS. CALL LIGHT IS IN REACH.
--- NOTE | 2021-09-26 04:06 | NUR ---
PT LYING IN BED, EYES CLOSED, APPEARS TO BE RESTING. BREATHING IS EVEN, UNLABORED. GOT PT A HEATING PAD FOR HIS R LEG. NO OTHER APPARENT SIGNS OF DISTRESS. CALL LIGHT IS IN REACH. BED ALARM IS ON.
--- NOTE | 2021-09-26 04:07 | NUR ---
PT IS AAO X 1, ON RA. GARDNER WITH DARK YELLOW URINE. PT REPORTS R LEG PAIN, GOT PERCOCET AND IS USING A HEATING PAD. PT WAS CONFUSED, AGRESSIVE AND RUDE FOR MOST OF THE SHIFT. THREW HIS WATER ACROSS THE ROOM, GOT HALDOL X 1. SECURITY HAD TO ASSIST WHEN HALDOL WAS GIVEN.
--- NOTE | 2021-09-26 05:33 | NUR ---
PT LYING IN BED, EYES CLOSED, APPEARS TO BE RESTING. BREATHING IS EVEN, UNLABORED. NO APPARENT SIGNS OF DISTRESS. CALL LIGHT IS IN REACH. NO OTHER CHANGES THIS SHIFT.
[2021-09-26] MEDS ORDERED: TRANSDERM-SCOP1 EAC1 TD (07:49)
--- NOTE | 2021-09-26 11:10 | NUR ---
DISCHARGE PT DISCHARGED HOME W/HOSPICE. DAUGHTER AND CAREGIVER TO BEDSIDE, REVIEWED NEW MED, FAXED TO [facility] PER PT PREFERENCE. ENERGY AND SUSTAINABILITY MANAGER TO MEET WITH PT AND FAMILY TODAY. ESCORTED OUT VIA W/C BY STEVEN
== END 2021-09-26 11:07 | disposition hospice, home (50) | DRG 271 ==
LOC: ER 09:43 → ICUW 13:20 → MEDS 09-25 16:02
PROVIDERS: Internal Medicine; Nurse Practitioner Acute Care; Pharmacist; Physician Assistant; Student in an Organized Health Care Education/Training Program; ADMIT Hospitalist
PROC: 04FH3ZZ Fragmentation of Right External Iliac Artery, Percutaneous Approach (ICD-10-PCS; principal; 2021-09-22)
PROC: 047K3Z1 Dilation of Right Femoral Artery using Drug-Coated Balloon, Percutaneous Approach (ICD-10-PCS; 2021-09-22)
PROC: 3E05317 Introduction of Other Thrombolytic into Peripheral Artery, Percutaneous Approach (ICD-10-PCS; 2021-09-22)
PROC: B41GYZZ Fluoroscopy of Left Lower Extremity Arteries using Other Contrast (ICD-10-PCS; 2021-09-22)
PROC: B41FYZZ Fluoroscopy of Right Lower Extremity Arteries using Other Contrast (ICD-10-PCS; 2021-09-22)
PROC: 04CM3ZZ Extirpation of Matter from Right Popliteal Artery, Percutaneous Approach (ICD-10-PCS; 2021-09-22)
PROC: 04CT3ZZ Extirpation of Matter from Right Peroneal Artery, Percutaneous Approach (ICD-10-PCS; 2021-09-22)
DX: I70.221 Atherosclerosis of native arteries of extremities with rest pain, right leg (principal); D62 Acute posthemorrhagic anemia; I10 Essential (primary) hypertension; E03.9 Hypothyroidism, unspecified; Z87.891 Personal history of nicotine dependence; Z51.5 Encounter for palliative care; D64.9 Anemia, unspecified; I48.91 Unspecified atrial fibrillation; Z20.822 Contact with and (suspected) exposure to COVID-19
CPT/HCPCS: 0241U; 36415; 37184; 37185; 37211; 37214; 37220; 37224; 37228; 37252; 37253; 51703; 75635; 75716; 75774; 76937; 80053; 80061; 81001; 82728; 83540; 83550; 83735; 84443; 85014; 85018; 85025; 85049; 85347; 85520; 85610; 85730; 93005; 93010; 93306; 93926; 96374-59; 96375-59; 97110; 97162; 97530; 99152; 99153; 99285-25; A9270; C1725; C1751; C1753; C1757; C1760; C1769; C1887; C1894; C2623; C9764; J0282; J0360; J1160; J1170; J1630; J1644; J2060; J2250; J2270; J2405; J2916; J2997; J3010; J7030; J7040; J7050; J7060; Q9967